=== PATIENT | male | born 1990 | race Caucasian/White ===

== ENCOUNTER → 2022-06-17 15:34 | Outpatient (CLI) | payer OTHER, SELFPAY ==
--- NOTE | ~2022-06-17 | XR_ITS ---
XR chest 2V DATE: 06/17/2022 16:02 INDICATION: Positive TB test. Smoker. TECHNIQUE: 2 views COMPARISON: None FINDINGS: Normal heart size. No hilar or mediastinal enlargement. Calcified pulmonary granuloma, righ t apex. No pulmonary infiltrate or consolidation, pleural effusion or pulmonary vascular congestion o r pneumothorax. Included skeletal structures are unremarkable. IMPRESSION: No active cardiopulmonary disease Reviewed, dictated and finalized at location A.
== END ==
DX: Z12.2 Encounter for screening for malignant neoplasm of respiratory organs (principal); Z87.891 Personal history of nicotine dependence
CPT/HCPCS: 71046